=== PATIENT | male | born 1980 | race African-American/Black ===

== ENCOUNTER 2022-07-07 21:17 | Emergency (ER) | payer OTHER ==
[~2022-07-07] VITALS: Ht 165.1 cm; Wt 68.0 kg
[2022-07-07 21:47] VITALS: BP 122/77
--- NOTE | 2022-07-07 21:58 | NUR ---
Patient taken to chair A.
[2022-07-07] MEDS ORDERED: ALBUTEROL 0.083% 2.5 MG/3 ML NEBU INH ONE ×2 (22:20→23:45)
[2022-07-07] MEDS ORDERED: predniSONE 20 MG TAB PO ONE (22:20)
--- NOTE | 2022-07-07 22:41 | NUR ---
PT MOVED TO ER BED 8
--- NOTE | 2022-07-07 22:42 | NUR ---
Respiratory Therapist at bedside for respiratory intervention.
--- NOTE | 2022-07-07 23:50 | NUR ---
RT at bedside for breathing treatment.
[2022-07-07] MEDS ORDERED: PRED20TA5 PO (23:56)
[2022-07-07] MEDS ORDERED: ALBU0.0912 INH (23:56)
[2022-07-08 00:01] VITALS: BP 127/77
--- NOTE | 2022-07-08 00:01 | NUR ---
Patient discharged with v/s stable. Written and verbal after care instructions given and explained by Dr. Fields. Patient alert, oriented and verbalized understanding of instructions. Ambulatory with steady gait. All questions addressed prior to discharge. ID band removed. Patient advised to follow up with PMD. Rx of Proventil HFA and Prednisone given. Patient educated on indication of medication including possible reaction and side effects. Opportunity to ask questions provided and answered.
== END 2022-07-08 00:01 | disposition home or self-care (01) ==
LOC: MED 21:17
DX: J45.901 Unspecified asthma with (acute) exacerbation (principal); Z79.899 Other long term (current) drug therapy; Z91.018 Allergy to other foods
CPT/HCPCS: 94640; 99285; J7512; J7613